=== PATIENT | female | born 1980 | race Caucasian/White ===

== ENCOUNTER 2017-06-25 10:32 | Emergency (ER) | payer MEDICAID ==
[~2017-06-25] VITALS: Ht 182.9 cm; Wt 88.6 kg
[2017-06-25 10:38] VITALS: BP 103/63; TEMP 98.1
[2017-06-25] MEDS ORDERED: BACTRIM DS 8001 TAB PO (12:07)
[2017-06-25 12:48] VITALS: PULSE 94
== END 2017-06-25 12:49 | disposition home or self-care (01) ==
LOC: COL.ER 10:32
DX: L03.115 Cellulitis of right lower limb (principal); F17.210 Nicotine dependence, cigarettes, uncomplicated; Z23 Encounter for immunization; Z98.890 Other specified postprocedural states
CPT/HCPCS: J1885

== ENCOUNTER 2019-09-01 09:08 | Emergency (ER) | payer MEDICAID ==
[~2019-09-01] VITALS: Ht 182.9 cm; Wt 81.8 kg
[~2019-09-01 09:08] MED LIST: BACTRIM DS 8001 TAB PO
[2019-09-01] MEDS ORDERED: AMOXICILLIN 8751 TAB PO ×2 (09:40→10:10)
[2019-09-01] MEDS ORDERED: TAMIFLU 75MG75 MG PO (10:10)
[2019-09-01 11:03] VITALS: BP 133/72; PULSE 76; TEMP 98.8
== END 2019-09-01 11:04 | disposition home or self-care (01) ==
LOC: COL.ER 09:08
DX: J11.1 Influenza due to unidentified influenza virus with other respiratory manifestations (principal); K64.9 Unspecified hemorrhoids